=== PATIENT | male | born 1970 | race African-American/Black ===

== ENCOUNTER 2017-04-15 11:19 | Emergency (ER) | payer MEDICAID, OTHER ==
[~2017-04-15] VITALS: Ht 170.2 cm; Wt 58.0 kg
[~2017-04-15 11:19] MED LIST: CLONIDINE; LORAZEPAM; [UNRECOGNIZED DRUG - REMARK]; [UNRECOGNIZED DRUG - REMARK]
[2017-04-15 11:32] VITALS: Ht 170.2 cm; Wt 58.0 kg
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
[2017-04-15] MEDS ORDERED: LORAZEPAM 2 MG INJ IV STA (12:40)
[2017-04-15] MEDS ORDERED: SOD CHLORIDE 0.9% 1,000 ML IV STA (12:40)
--- NOTE | 2017-04-15 13:08 | RADRPT ---
PROCEDURE: CT Brain without contrast. CLINICAL INDICATION: Seizure. Syncope. TECHNIQUE: A CT of the brain was performed on multidetector high-resolution CT scanner utilizing a xial sections from the skull base through the vertex without contrast. The scan was reviewed in sof t tissue brain and high frequency resolution bone algorithm windows. Images were reviewed on a high -resolution PACS workstation. One or more the following does reduction techniques were utilized: Aut omated exposure control, adjustment of the mA/ or kV according to patient's size, or use of iterativ e reconstruction technique. The exam CTDI = 44.4 mGy and the DLP = 720.23 mGy-cm. COMPARISON: None available. FINDINGS: The ventricles and sulci are mildly prominent indicative of volume loss. There is no intracranial he morrhage, mass effect or midline shift. No abnormal intra-axial or extra-axial fluid collections ar e seen. The jennings/white matter differentiation is preserved. Mild hyperdensity are noted in bilateral lentiform nuclei which likely represent faint calcification s. There are mild scattered foci of hypoattenuation in the white matter, which are nonspecific in etiol ogy but likely reflect chronic small vessel ischemic changes. The visualized paranasal sinuses are e ssentially clear. IMPRESSION: 1. No acute intracranial hemorrhage, transcortical infarction or mass effect. If clinical concern p ersists consider brain MRI. 2. Mild white matter signal abnormality likely represent chronic small vessel ischemic changes. 3. Mild generalized cerebral volume loss. RPTAT: HH .Yuly Levine MD, MD Date Time Electronically viewed and signed by .Yuly Levine MD, MD on 04/15/2017 13:07 .N/
[2017-04-15] MEDS ORDERED: LOSA25TA5 PO (13:38)
[2017-04-15] MEDS ORDERED: GABA300C16 PO (13:39)
[2017-04-15] MEDS ORDERED: LORA1TAB PO (18:02)
[2017-04-15 18:18] VITALS: BP 155/72; PULSE 72; RESP 20; TEMP 98.1
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
--- NOTE | 2017-04-16 21:50 | RADRPT ---
Echocardiogram Report Patient Name: FUNMILAYO INIGUEZ Gender: Male Date: 1970 Study Date: 15-Apr-2017 [employer] [place] Operator: Babak Taveras [facility] Location: [facility] Ref. Physician: LIA PEÑALOZA Quality: Adequate Procedures: Transthoracic echocardiogram with complete 2D, M-Mode, and doppler examination. Indications: Pericardial Effusion. 2D/M Mode Doppler Measurement Value Normal Ranges Measurement Value Normal Ranges LVIDd 2D 4.5 3.5 - 5.6 cm AV Peak [place] 1.6 m/sec LVIDs 2D 3.5 2.1 - 4.1 cm AV Peak PG 9.7 mmHg LVPWd 2D 1.3 0.6 - 1.1 cm LVOT Peak [place] 1.3 m/sec IVSd 2D 1.3 0.6 - 1.1 cm LVOT Peak PG 6.7 mmHg AoR Diam 2D 3.0 2.0 - 3.7 cm MV E Peak [place] 0.6 m/sec EDV 2D 92.9 cm3 MV A Peak [place] 1.1 m/sec ESV 2D 42.4 cm3 MV E/A 0.5 LA Dimen 2D 3.6 2.3 - 4.0 cm MV Decel Time 201 msec MV Decel [place] 3 MV E/A 0.5 TR Peak [place] 2.8 m/sec TR Peak PG 30.4 mmHg RVSP 33.0 mmHg Findings Left Ventricle: Lower limits of normal systolic function. Normal left ventricular cavity size. Mild concentric left ventricular hypertrophy. Ejection fraction is visually estimated at 45 %. Tissue Doppler/Mitral Doppler indices are consistent with impaired relaxation (Stage I diastolic dysfunction). These segments of the LV are hypokinetic inferoseptum mid segment and inferoseptum basal segment. Right Ventricle: Normal right ventricular size. Normal right ventricular systolic function. Left Atrium: The left atrium is normal in size. Right Atrium: The right atrium is normal in size. Mitral Valve: Mild mitral leaflet calcification. Mild mitral annular calcification. Trace mitral regurgitation. Aortic Valve: Normal appearance of the aortic valve. No significant aortic stenosis or insufficiency. Tricuspid Valve: Normal appearance of the tricuspid valve. Estimated peak PA systolic pressure 33 mmHg. There is mild tricuspid regurgitation. Pulmonic Valve: Pulmonic valve not well visualized. There is trace pulmonic regurgitation. Pericardium: Normal pericardium with no significant pericardial effusion. Aorta: Normal aortic root. IVC: Normal size and normal respiratory collapse consistent with normal right atrial pressure. Conclusions 1.Lower limits of normal systolic function. Normal left ventricular cavity size. Mild concentric left ventricular hypertrophy. Ejection fraction is visually estimated at 45-50 %. Tissue Doppler/Mitral Doppler indices are consistent with impaired relaxation (Stage I diastolic dysfunction). These segments of the LV are hypokinetic inferoseptum mid segment. and inferoseptum basal segment. 2.Mild mitral leaflet calcification. Mild mitral annular calcification. Trace mitral regurgitation. 3.Normal appearance of the tricuspid valve. Estimated peak PA systolic pressure 33 mmHg. There is mild tricuspid regurgitation. 4.Pulmonic valve not well visualized. There is trace pulmonic regurgitation. 5.Normal pericardium with no significant pericardial effusion. Electronically Signed By: Yobany Esqueda 16-Apr-2017 21:49:28 -0800 Patient Name: FUNMILAYO INIGUEZ Study Date: 15-Apr-2017 [id number]
--- NOTE | 2017-04-16 21:50 | RADRPT ---
Echocardiogram Report Patient Name: FUNMILAYO INIGUEZ Gender: Male Date: 1970 Study Date: 15-Apr-2017 Mat Repairer: Babak Taveras [facility] Location: [facility] Ref. Physician: LIA PEÑALOZA Quality: Adequate Procedures: Transthoracic echocardiogram with complete 2D, M-Mode, and doppler examination. Indications: Pericardial Effusion. 2D/M Mode Doppler Measurement Value Normal Ranges Measurement Value Normal Ranges LVIDd 2D 4.5 3.5 - 5.6 cm AV Peak [place] 1.6 m/sec LVIDs 2D 3.5 2.1 - 4.1 cm AV Peak PG 9.7 mmHg LVPWd 2D 1.3 0.6 - 1.1 cm LVOT Peak [place] 1.3 m/sec IVSd 2D 1.3 0.6 - 1.1 cm LVOT Peak PG 6.7 mmHg AoR Diam 2D 3.0 2.0 - 3.7 cm MV E Peak [place] 0.6 m/sec EDV 2D 92.9 cm3 MV A Peak [place] 1.1 m/sec ESV 2D 42.4 cm3 MV E/A 0.5 LA Dimen 2D 3.6 2.3 - 4.0 cm MV Decel Time 201 msec MV Decel [place] 3 MV E/A 0.5 TR Peak [place] 2.8 m/sec TR Peak PG 30.4 mmHg RVSP 33.0 mmHg Findings Left Ventricle: Lower limits of normal systolic function. Normal left ventricular cavity size. Mild concentric left ventricular hypertrophy. Ejection fraction is visually estimated at 45 %. Tissue Doppler/Mitral Doppler indices are consistent with impaired relaxation (Stage I diastolic dysfunction). These segments of the LV are hypokinetic inferoseptum mid segment and inferoseptum basal segment. Right Ventricle: Normal right ventricular size. Normal right ventricular systolic function. Left Atrium: The left atrium is normal in size. Right Atrium: The right atrium is normal in size. Mitral Valve: Mild mitral leaflet calcification. Mild mitral annular calcification. Trace mitral regurgitation. Aortic Valve: Normal appearance of the aortic valve. No significant aortic stenosis or insufficiency. Tricuspid Valve: Normal appearance of the tricuspid valve. Estimated peak PA systolic pressure 33 mmHg. There is mild tricuspid regurgitation. Pulmonic Valve: Pulmonic valve not well visualized. There is trace pulmonic regurgitation. Pericardium: Normal pericardium with no significant pericardial effusion. Aorta: Normal aortic root. IVC: Normal size and normal respiratory collapse consistent with normal right atrial pressure. Conclusions 1.Lower limits of normal systolic function. Normal left ventricular cavity size. Mild concentric left ventricular hypertrophy. Ejection fraction is visually estimated at 45-50 %. Tissue Doppler/Mitral Doppler indices are consistent with impaired relaxation (Stage I diastolic dysfunction). These segments of the LV are hypokinetic inferoseptum mid segment. and inferoseptum basal segment. 2.Mild mitral leaflet calcification. Mild mitral annular calcification. Trace mitral regurgitation. 3.Normal appearance of the tricuspid valve. Estimated peak PA systolic pressure 33 mmHg. There is mild tricuspid regurgitation. 4.Pulmonic valve not well visualized. There is trace pulmonic regurgitation. 5.Normal pericardium with no significant pericardial effusion. Electronically Signed By: Yobany Esqueda 16-Apr-2017 21:49:28 -0800 Patient Name: FUNMILAYO INIGUEZ Study Date: 15-Apr-2017 [id number]
== END 2017-04-15 18:41 | disposition home or self-care (01) ==
LOC: E/R 11:19
DX: R56.9 Unspecified convulsions (principal); F10.230 Alcohol dependence with withdrawal, uncomplicated; E86.0 Dehydration; I10 Essential (primary) hypertension; F41.9 Anxiety disorder, unspecified; Z87.891 Personal history of nicotine dependence
CPT/HCPCS: 36415; 70450; 80053; 84484; 85025; 93005; 93306; 96374; 99285; J2060; J7030